=== PATIENT | female | born 1950 | race Caucasian/White ===

== ENCOUNTER 2017-01-08 13:03 | Emergency (ER) | payer MEDICAID ==
[2017-01-08 13:33] LABS: BASOPHILS 0.7 % (0.0-2.0); EOSINOPHILS 3.3 % (0-7); HEMATOCRIT 42.9 % (36.0-48.0); HEMOGLOBIN 14.2 g/dL (12-16); IMMATURE GRANULOCYTES 0.1 % (0-5); LYMPHOCYTES 34.9 % (15-50); MCH 31.6 pg (26.0-34.0); MCHC 33.1 g/dL (31.0-37.0); MCV 95.5 fL (80.0-100.0); MEAN PLATELET VOLUME 10.2 fL (7.4-10.4); PLATELET COUNT 187 10x3/uL (130-400); RBC 4.49 10x6/uL (4.00-5.40); RDW 13.2 % (11.5-14.5); WBC 9.2 10x3/uL (4.8-10.8)
[2017-01-08 13:58] LABS: ALBUMIN 3.6 g/dL (3.4-5.0); ALKALINE PHOSPHATASE 158 U/L (46-116); ALT (SGPT) 64 U/L (10-68); BILIRUBIN - TOTAL 0.41 mg/dL (0.2-1.3); CALC OSMOLALITY 282 mosm/kg (275-300); CALCIUM 8.7 mg/dL (8.5-10.1); CARBON DIOXIDE 26.8 mmol/L (21.0-32.0); CHLORIDE - SERUM 102 mmol/L (98-107); CREATININE - SERUM 0.9 mg/dL (0.6-1.3); POTASSIUM - SERUM 4.3 mmol/L (3.5-5.1); PROTEIN - SERUM 8.2 g/dL (6.4-8.2); SODIUM 138 mmol/L (136-145); UREA NITROGEN 11 mg/dL (7-18); eGFR NON AFRICAN AMERICAN 67 mL/min (90-120)
[2017-01-08 13:59] LABS: GLUCOSE 243 mg/dL (74-106)
[2017-01-08 14:08] LABS: CKMB 0.3 U/L (0.0-3.6); CREATINE KINASE 67 UL (21-215); TROPONIN-I < 0.017 ng/mL (0.000-0.060)
== END 2017-01-08 18:13 | disposition home or self-care (01) ==
LOC: D.ER 13:03
PROVIDERS: Family Medicine
DX: R05 Cough (principal); R06.02 Shortness of breath; E11.9 Type 2 diabetes mellitus without complications; Z79.4 Long term (current) use of insulin; R91.8 Other nonspecific abnormal finding of lung field; F17.200 Nicotine dependence, unspecified, uncomplicated

== ENCOUNTER 2017-02-26 11:10 | Emergency (ER) | payer MEDICAID | END 2017-02-26 12:30 | disposition home or self-care (01) | LOC: D.ER 11:10 | DX: S90.862A Insect bite (nonvenomous), left foot, initial encounter (principal); S90.861A Insect bite (nonvenomous), right foot, initial encounter; W57.XXXA Bitten or stung by nonvenomous insect and other nonvenomous arthropods, initial encounter; Y93.89 Activity, other specified; Y92.89 Other specified places as the place of occurrence of the external cause; E11.9 Type 2 diabetes mellitus without complications; Z79.4 Long term (current) use of insulin ==

== ENCOUNTER 2017-02-26 20:51 | Emergency (ER) | payer MEDICAID ==
[2017-02-26 22:26] LABS: BASOPHILS 0.6 % (0-2); EOSINOPHILS 2.7 % (0-7); HEMATOCRIT 39.5 % (36.0-48.0); IMMATURE GRANULOCYTES 0.3 % (0-5); LYMPHOCYTES 48.9 % (15-50); MCH 31.9 pg (26.0-34.0); MCHC 32.9 g/dL (31.0-37.0); MCV 97.1 fL (80.0-100.0); MEAN PLATELET VOLUME 10.5 fL (7.4-10.4); MONOCYTES 7.7 % (2-11); NEUTROPHILS 39.8 % (40-80); PLATELET COUNT 173 10x3/uL (130-400); RBC 4.07 10x6/uL (4.00-5.40); RDW 13.2 % (11.5-14.5); WBC 9.3 10x3/uL (4.8-10.8)
[2017-02-26 22:33] LABS: ALBUMIN 3.2 g/dL (3.4-5.0); ANION GAP 7.9 mmol/L (8-16); BILIRUBIN - TOTAL 0.26 mg/dL (0.2-1.3); CALCIUM 8.8 mg/dL (8.5-10.1); CARBON DIOXIDE 30.7 mmol/L (21.0-32.0); CREATININE - SERUM 1.1 mg/dL (0.6-1.3); POTASSIUM - SERUM 4.6 mmol/L (3.5-5.1); PROTEIN - SERUM 7.8 g/dL (6.4-8.2)
== END 2017-02-26 23:10 | disposition home or self-care (01) ==
LOC: D.ER 20:51
PROVIDERS: Emergency Medicine
DX: M54.30 Sciatica, unspecified side (principal); M62.838 Other muscle spasm; S39.012A Strain of muscle, fascia and tendon of lower back, initial encounter; X58.XXXA Exposure to other specified factors, initial encounter; Y93.89 Activity, other specified; Y92.89 Other specified places as the place of occurrence of the external cause; F17.200 Nicotine dependence, unspecified, uncomplicated; E11.9 Type 2 diabetes mellitus without complications; Z79.4 Long term (current) use of insulin

== ENCOUNTER 2017-05-14 11:04 | Emergency (ER) | payer MEDICAID ==
[2017-05-14 12:36] LABS: BASOPHILS 0.4 % (0-2); EOSINOPHILS 3.6 % (0-7); HEMATOCRIT 38.6 % (36.0-48.0); HEMOGLOBIN 12.8 g/dL (12-16); IMMATURE GRANULOCYTES 0.1 % (0-5); LYMPHOCYTES 47.1 % (15-50); MCH 32.2 pg (26.0-34.0); MCHC 33.2 g/dL (31.0-37.0); MEAN PLATELET VOLUME 9.6 fL (7.4-10.4); MONOCYTES 6.4 % (2-11); NEUTROPHILS 42.4 % (40-80); PLATELET COUNT 194 10x3/uL (130-400); RBC 3.98 10x6/uL (4.00-5.40); RDW 13.3 % (11.5-14.5); WBC 7.5 10x3/uL (4.8-10.8)
[2017-05-14 14:53] LABS: ALBUMIN 3.4 g/dL (3.4-5.0); ALKALINE PHOSPHATASE 133 U/L (46-116); ALT (SGPT) 46 U/L (10-68); AMYLASE - SERUM 68 U/L (25-115); BILIRUBIN - TOTAL 0.37 mg/dL (0.2-1.3); CALC OSMOLALITY 285 mosm/kg (275-300); CALCIUM 8.7 mg/dL (8.5-10.1); CARBON DIOXIDE 27.5 mmol/L (21.0-32.0); CHLORIDE - SERUM 104 mmol/L (98-107); CREATININE - SERUM 0.8 mg/dL (0.6-1.3); LIPASE 198 U/L (73-393); POTASSIUM - SERUM 4.8 mmol/L (3.5-5.1); PROTEIN - SERUM 8.2 g/dL (6.4-8.2); SODIUM 139 mmol/L (136-145); UREA NITROGEN 14 mg/dL (7-18); eGFR NON AFRICAN AMERICAN 76 mL/min (90-120)
[2017-05-14 14:54] LABS: GLUCOSE 232 mg/dL (74-106)
[2017-05-14 15:26] LABS: APPEARANCE HAZY (CLEAR); BILIRUBIN NEGATIVE (NEGATIVE); COLOR STRAW (YELLOW); GLUCOSE NEGATIVE (NEGATIVE); KETONE NEGATIVE (NEGATIVE); LEUKOCYTE ESTERASE 1+ (NEGATIVE); NITRITE NEGATIVE (NEGATIVE); PROTEIN NEGATIVE (NEGATIVE); UROBILINOGEN NORMAL (NORMAL)
[2017-05-14 15:29] LABS: BACTERIA MODERATE /hpf (NONE SEEN); RED CELLS - URINE OCC /hpf (0-5)
== END 2017-05-14 16:40 | disposition home or self-care (01) ==
LOC: D.ER 11:04
PROVIDERS: Emergency Medicine; Nurse Practitioner Family
DX: N39.0 Urinary tract infection, site not specified (principal); R10.9 Unspecified abdominal pain; F17.200 Nicotine dependence, unspecified, uncomplicated; E11.9 Type 2 diabetes mellitus without complications; Z79.4 Long term (current) use of insulin

== ENCOUNTER 2017-07-28 14:11 | Emergency (ER) | payer MEDICAID | END 2017-07-28 17:29 | disposition home or self-care (01) | LOC: D.ER 14:11 | DX: S43.401A Unspecified sprain of right shoulder joint, initial encounter (principal); X50.0XXA Overexertion from strenuous movement or load, initial encounter; Y93.89 Activity, other specified; Y92.029 Unspecified place in mobile home as the place of occurrence of the external cause; F17.200 Nicotine dependence, unspecified, uncomplicated ==

== ENCOUNTER 2018-01-07 11:52 | Emergency (ER) | payer MEDICAID ==
[2018-01-07 14:38] LABS: BASOPHILS 0.5 % (0-2); EOSINOPHILS 3.5 % (0-7); HEMATOCRIT 40.7 % (36.0-48.0); HEMOGLOBIN 13.4 g/dL (12-16); IMMATURE GRANULOCYTES 0.2 % (0-5); LYMPHOCYTES 32.2 % (15-50); MCH 32.4 pg (26.0-34.0); MCHC 32.9 g/dL (31.0-37.0); MCV 98.3 fL (80.0-100.0); MEAN PLATELET VOLUME 9.4 fL (7.4-10.4); MONOCYTES 9.9 % (2-11); NEUTROPHILS 53.7 % (40-80); PLATELET COUNT 205 10x3/uL (130-400); RBC 4.14 10x6/uL (4.00-5.40); RDW 13.1 % (11.5-14.5); WBC 9.4 10x3/uL (4.8-10.8)
[2018-01-07 14:43] LABS: APPEARANCE HAZY (CLEAR); BILIRUBIN NEGATIVE (NEGATIVE); COLOR ORANGE (YELLOW); GLUCOSE NEGATIVE (NEGATIVE); KETONE NEGATIVE (NEGATIVE); NITRITE NEGATIVE (NEGATIVE); PROTEIN 1+ mg/dL (NEGATIVE); SPECIFIC GRAVITY 1.025 (1.005-1.020); UROBILINOGEN NORMAL (NORMAL)
[2018-01-07 14:47] LABS: BACTERIA FEW /hpf (NONE SEEN); MUCUS <1+ /lpf (NONE SEEN)
[2018-01-07 14:58] LABS: ALBUMIN 3.7 g/dL (3.4-5.0); ALKALINE PHOSPHATASE 110 U/L (46-116); ALT (SGPT) 24 U/L (10-68); BILIRUBIN - TOTAL 0.39 mg/dL (0.2-1.3); CALCIUM 9.2 mg/dL (8.5-10.1); CARBON DIOXIDE 23.8 mmol/L (21.0-32.0); CHLORIDE - SERUM 105 mmol/L (98-107); CREATININE - SERUM 1.1 mg/dL (0.6-1.3); POTASSIUM - SERUM 3.8 mmol/L (3.5-5.1); PROTEIN - SERUM 8.3 g/dL (6.4-8.2); SODIUM 140 mmol/L (136-145); UREA NITROGEN 11 mg/dL (7-18); eGFR NON AFRICAN AMERICAN 53 mL/min (90-120)
[2018-01-07 15:01] LABS: AMYLASE - SERUM 74 U/L (25-115); LIPASE 118 U/L (73-393)
[2018-01-07 15:02] LABS: CALC OSMOLALITY 278 mosm/kg (275-300); GLUCOSE 118 mg/dL (74-106); TROPONIN-I < 0.017 ng/mL (0.000-0.060)
== END 2018-01-07 16:06 | disposition home or self-care (01) ==
LOC: D.ER 11:52
PROVIDERS: Emergency Medicine; Nurse Practitioner Family
DX: N39.0 Urinary tract infection, site not specified (principal); R11.2 Nausea with vomiting, unspecified; E11.9 Type 2 diabetes mellitus without complications; Z79.4 Long term (current) use of insulin

== ENCOUNTER 2018-07-17 13:46 | Emergency (ER) | payer MEDICARE ==
[~2018-07-17] VITALS: Ht 157.5 cm; Wt 95.5 kg
[2018-07-17 13:49] VITALS: Ht 157.5 cm; Wt 95.5 kg
[2018-07-17] MEDS ORDERED: LANTUS SQ (13:55)
[2018-07-17] MEDS ORDERED: GLUCOPHAGE500 MG PO (13:55)
[2018-07-17] MEDS ORDERED: ZOVIRAX800 MG PO (16:56)
[2018-07-17] MEDS ORDERED: NEURONTIN 300300 MG PO (16:56)
[2018-07-17 17:19] VITALS: BP 179/85
== END 2018-07-17 17:19 | disposition home or self-care (01) ==
LOC: D.ER 13:46
DX: B02.9 Zoster without complications (principal); E11.9 Type 2 diabetes mellitus without complications; F17.200 Nicotine dependence, unspecified, uncomplicated

== ENCOUNTER 2018-08-29 10:11 | Emergency (ER) | payer MEDICARE ==
[~2018-08-29] VITALS: Ht 157.5 cm; Wt 90.0 kg
[~2018-08-29 10:11] MED LIST: GLUCOPHAGE500 MG PO; LANTUS SQ; NEURONTIN 300300 MG PO; ZOVIRAX800 MG PO
[2018-08-29 10:25] VITALS: Ht 157.5 cm; Wt 90.0 kg
[2018-08-29] MEDS ORDERED: ULTRAM50 MG PO (11:04)
[2018-08-29] MEDS ORDERED: MEDROL DOSE PACK4 MG PO (11:04)
[2018-08-29] MEDS ORDERED: ZOVIRAX800 MG PO (11:04)
[2018-08-29 12:44] VITALS: BP 126/59
== END 2018-08-29 12:45 | disposition home or self-care (01) ==
LOC: D.ER 10:11
DX: B02.9 Zoster without complications (principal); M25.512 Pain in left shoulder; E11.9 Type 2 diabetes mellitus without complications; F17.200 Nicotine dependence, unspecified, uncomplicated

== ENCOUNTER 2018-09-16 16:27 | Emergency (ER) | payer MEDICARE ==
[~2018-09-16] VITALS: Ht 157.5 cm; Wt 87.1 kg
[~2018-09-16 16:27] MED LIST changes: +MEDROL DOSE PACK4 MG PO; +ULTRAM50 MG PO
[2018-09-16 16:31] VITALS: Ht 157.5 cm; Wt 87.1 kg
[2018-09-16] MEDS ORDERED: ACETAMINOPHEN500 M1 PO (17:15)
[2018-09-16] MEDS ORDERED: MEDROL DOSE PACK4 MG PO (17:15)
[2018-09-16] MEDS ORDERED: CYCLOBENZAPRINE10 MG PO (17:15)
[2018-09-16 17:53] VITALS: BP 135/67
== END 2018-09-16 17:53 | disposition home or self-care (01) ==
LOC: D.ER 16:27
DX: M54.42 Lumbago with sciatica, left side (principal); E11.9 Type 2 diabetes mellitus without complications

== ENCOUNTER 2019-05-16 20:01 | Inpatient (IN) | payer MEDICARE ==
[~2019-05-16] VITALS: Ht 157.5 cm; Wt 89.4 kg
[~2019-05-16 20:01] MED LIST changes: +ACETAMINOPHEN500 M1 PO; +CYCLOBENZAPRINE10 MG PO
[2019-05-16] MEDS ORDERED: CENTRUM SILVER1 EAC3 PO (20:11)
[2019-05-16 20:37] LABS: BASOPHILS 0.4 % (0-2); EOSINOPHILS 1.8 % (0-7); HEMATOCRIT 39.9 % (36.0-48.0); HEMOGLOBIN 13.7 g/dL (12-16); IMMATURE GRANULOCYTES 0.1 % (0-5); LYMPHOCYTES 39.8 % (15-50); MCH 33.2 pg (26.0-34.0); MCHC 34.3 g/dL (31.0-37.0); MCV 96.6 fL (80.0-100.0); MEAN PLATELET VOLUME 9.2 fL (7.4-10.4); MONOCYTES 5.4 % (2-11); NEUTROPHILS 52.5 % (40-80); PLATELET COUNT 230 10x3/uL (130-400); RBC 4.13 10x6/uL (4.00-5.40); WBC 13.7 10x3/uL (4.8-10.8)
[2019-05-16 20:54] LABS: ALBUMIN 3.9 g/dL (3.4-5.0); ALKALINE PHOSPHATASE 118 U/L (46-116); ALT (SGPT) 21 U/L (10-68); BILIRUBIN - TOTAL 0.27 mg/dL (0.2-1.3); CALC OSMOLALITY 280 mosm/kg (275-300); CALCIUM 9.3 mg/dL (8.5-10.1); CARBON DIOXIDE 25.7 mmol/L (21.0-32.0); CHLORIDE - SERUM 105 mmol/L (98-107); GLUCOSE 134 mg/dL (74-106); POTASSIUM - SERUM 4.4 mmol/L (3.5-5.1); PROTEIN - SERUM 8.5 g/dL (6.4-8.2); SODIUM 139 mmol/L (136-145); UREA NITROGEN 16 mg/dL (7-18); eGFR NON AFRICAN AMERICAN 59 mL/min (90-120)
[2019-05-16 20:58] LABS: AMYLASE - SERUM 101 U/L (25-115); LIPASE 616 U/L (73-393)
[2019-05-16 21:06] LABS: TROPONIN-I < 0.017 ng/mL (0.000-0.060)
--- NOTE | 2019-05-16 22:03 | NUR ---
BEDSIDE COMMODE AT BEDSIDE. REPORTS PAIN IS EASING UP
--- NOTE | 2019-05-16 23:22 | NUR ---
CT TRANSFERRED PT VIA WC FOR CT ABD PELVIS
[2019-05-17 02:44] VITALS: BP 140/50; BMI 36.1
--- NOTE | 2019-05-17 03:15 | NUR ---
RECIEVED REPORT FROM CRAIG SNIDER, PT ARRIVED IN BED. AAOX3, NO S/S OF DISTRESS. VSS. PT C/O PAIN UPON ARRIVAL IN UNIT. WILL GIVE PRN PAIN MED WHEN DUE. INITIAL ASSESSMENT COMPLETED. PT'S A GOOD HISTORIAN. WILL CPOC.
--- NOTE | 2019-05-17 03:37 | NUR ---
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 1MG NEEDED LOCKOUT 10MIN. PT REFUSED INITIAL DOSE BOLUS AT THIS TIME. PT VOICED THANKS. WILL CPOC.
[2019-05-17 04:00] VITALS: BP 140/50
--- NOTE | 2019-05-17 04:20 | NUR ---
ASSESSED PT PAIN LEVEL. PT STATES SHE IS FEELING GREAT. STATES PAIN LEVEL IS 3/10 AT THIS TIME. WILL CTM.
--- NOTE | 2019-05-17 06:38 | NUR ---
FSBS 64. 2 CANS OF OJ GIVEN WITH A PACK OF SUGAR. WILL NOTIFY INCOMING NURSE. ASSIST PT TO BATHROOM. DIRECTOR CARD STILL INFUSING. WILL CPOC.
--- NOTE | 2019-05-17 07:10 | NUR ---
REPORT RECEIVED FROM ELEMENTARY SCHOOL TEACHER'S AIDE AND PATIENT CARE ASSUMED. PATIENT IS LAYING IN BED ON BACK AWAKE, ALERT AND ORIENTED X 4. PATIENT DENIES ANY NEEDS OR PAIN. WILL CONTINUE WITH PLAN OF CARE. SR UP X 2 BED IN LOW POSITION AND CALL LIGHT IN REACH.
[2019-05-17 08:52] VITALS: BP 111/43
[2019-05-17 12:55] LABS: APPEARANCE CLEAR (CLEAR); BILIRUBIN NEGATIVE (NEGATIVE); COLOR YELLOW (YELLOW); GLUCOSE NEGATIVE (NEGATIVE); KETONE NEGATIVE (NEGATIVE); NITRITE POSITIVE (NEGATIVE); PROTEIN TRACE mg/dL (NEGATIVE); SPECIFIC GRAVITY 1.015 (1.005-1.020); UROBILINOGEN NORMAL (NORMAL)
[2019-05-17 12:56] LABS: WHITE CELLS - URINE 0-5 /hpf (0-5)
[2019-05-17 12:57] LABS: BACTERIA MODERATE /hpf (NONE SEEN); EPITHELIAL CELLS 0-5 /hpf (0-5); MUCUS <1+ /lpf (NONE SEEN)
[2019-05-17 13:33] VITALS: Ht 157.5 cm; Wt 89.4 kg
[2019-05-17 13:56] VITALS: BP 148/69
--- NOTE | 2019-05-17 19:10 | NUR ---
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
[2019-05-17 20:00] VITALS: BP 151/58
--- NOTE | 2019-05-18 01:23 | NUR ---
I have reviewed this patient and I concur with the Shift Assessment completed by the Licensed Practical Nurse today this shift.
[2019-05-18 04:00] VITALS: BP 129/64
[2019-05-18 05:48] LABS: ALBUMIN 3.2 g/dL (3.4-5.0); ALKALINE PHOSPHATASE 86 U/L (46-116); ALT (SGPT) 20 U/L (10-68); BILIRUBIN - TOTAL 0.41 mg/dL (0.2-1.3); CALCIUM 8.1 mg/dL (8.5-10.1); CARBON DIOXIDE 26.6 mmol/L (21.0-32.0); CHLORIDE - SERUM 109 mmol/L (98-107); GLUCOSE 136 mg/dL (74-106); LIPASE 82 U/L (73-393); POTASSIUM - SERUM 4.4 mmol/L (3.5-5.1); PROTEIN - SERUM 6.9 g/dL (6.4-8.2); SODIUM 142 mmol/L (136-145)
[2019-05-18 05:54] LABS: AMYLASE - SERUM 64 U/L (25-115); CALC OSMOLALITY 281 mosm/kg (275-300); CREATININE - SERUM 0.7 mg/dL (0.6-1.3); UREA NITROGEN 5 mg/dL (7-18); eGFR NON AFRICAN AMERICAN 89 mL/min (90-120)
[2019-05-18 08:40] VITALS: BP 166/54
--- NOTE | 2019-05-18 09:10 | NUR ---
PATIENT PAIN IS BEING TREATED ORDERED. DENIES ANY OTHER NEEDS AT THIS TIME.
--- NOTE | 2019-05-18 12:12 | NUR ---
NEW IV START 22 G IN RIGHT AC , ONE STICK, PATIENT TOLERATED. IV IN LEFT AC REMOVED BECAUSE IT WAS INFILTRATED. CATHETER INTACT AND PATIENT TOLERATED.
[2019-05-18 12:27] VITALS: BP 153/66
--- NOTE | 2019-05-18 14:36 | NUR ---
PATIENT HAS BEEN DISCHARGED. ALL DISCHARGE PAPERWORK HAS BEEN DONE AND PAPERS SIGNED. ALL PATIENT BELONGINGS HAVE BEEN REMOVED FROM THE ROOM. IV FROM RIGHT AC HAS BEEN REMOVED CATHETER INTACT. PATIENT IS LEAVING THE FLOOR BY WHEELCHAIR AND GOING HOME WITH FAMILY.
--- NOTE | 2019-05-18 16:30 | MORECARE ---
CASE MANAGEMENT DISCHARGE SUMMARY PATIENT: GUS BENAVIDEZ UNIT: [id number] ADM DATE: 05/17/19 AGE: 68 : 52 SEX: F ROOM/BED: D.2104 AUTHOR: JORDAN CARREON PHYSICIAN: REFERRING PHYSICIAN: HERMINIO DUARTE MD DATE OF SERVICE: 05/18/19 Discharge Plan Patient Name: GUS [facility]NA[facility]IDE[facility] [facility] 1950 Planned Disposition: Home Anticipated Discharge Date: 05/18/19 Discharge Date: 05/18/2019 Expected LOS: 1 Initial Reviewer: [email or web address] Initial Review Date: 05/18/2019 Generated: 05/18/19 5:30 pm DCPIA - Discharge Planning Initial Assessment Updated by [email or web address]: Jovani Nobles on 05/18/19 4:28 pm * Is the patient Alert and Oriented? Yes * How many steps to enter\exit or inside your home? * PCP DR. SAMAYOA [place] * Pharmacy [facility] * Preadmission Environment Home with Family * ADLs Independent * Equipment None * Other Equipment NO MEDICAL EQUIPMENT PROVIDER PREFERENCE * List name and contact numbers for known caregivers / representatives who currently or will assist patient after discharge: CYNDY POMPA R, * Verbal permission to speak to the caregivers and representatives has been obtained from the patient. N/A * Community resources currently utilized None * Please name any agencies selected above. NONE * Additional services required to return to the preadmission environment? No * Can the patient safely return to the preadmission environment? Yes * Has this patient been hospitalized within the prior 30 days at any hospital? No Patient Name: GUS BENAVIDEZ Page [id number] at 1630 All edits/amendments must be made on the electronic document DICTATION DATE: 05/18/19 1630 RECHECKER: CELIA 05/18/19 1630 RPT#: [id number] DC DATE:05/18/19 STATUS: DIS IN [facility] [address] [place] [address] END OF REPORT
--- NOTE | 2019-05-18 16:38 | MORECARE ---
CASE MANAGEMENT DISCHARGE SUMMARY PATIENT: GUS BENAVIDEZ UNIT: [id number] ADM DATE: 05/17/19 AGE: 68 : 52 SEX: F ROOM/BED: D.7501 AUTHOR: LAURI,DOC PHYSICIAN: REFERRING PHYSICIAN: HERMINIO DUARTE MD DATE OF SERVICE: 05/18/19 Discharge Plan Patient Name: GUS BENAVIDEZ Facility: [facility]:[place] : 1950 Planned Disposition: Home Anticipated Discharge Date: 05/18/19 Discharge Date: 05/18/2019 Expected LOS: 1 Initial Reviewer: [email or web address] Initial Review Date: 05/18/2019 Generated: 05/18/19 5:37 pm Comments DCP- Discharge Planning Updated by [email or web address]: Jovani Nobles on 05/18/19 3:[address] Patient Name: GUS BENAVIDEZ Admission Status: ER Accout number: [id number] Admission Date: 05-17-2019 : 1950 Admission Diagnosis: Attending: IRASEMA DUARTE Current LOS: 1 Anticipated DC Date: 05-18-2019 Planned Disposition: Home Primary Insurance: MEDICARE A & B Discharge Planning Comments: CM MET WITH PT IN ROOM TO DISCUSS DISCHARGE PLANNING AND NEEDS. PT REPORTS LIVING AT HOME INDEPENDENTLY, ALSO IN THE HOME IS PT'S ADULT DAUGHTER. PT HAS NO MEDICAL EQUIPMENT AND NO OUTSIDE SERVICES ASSISTING IN THE HOME. CM DISCUSSED AVAILABILITY OF HOME HEALTH, REHAB SERVICES AND MEDICAL EQUIPMENT. PT DENIES DISCHARGE NEEDS, REPORTS HER DAUGHTER WILL PICK HER UP FOR DISCHARGE HOME. Coil Winder Hand: Jovani Nobles DCPIA - Discharge Planning Initial Assessment Updated by [email or web address]: Jovani Nobles on 05/18/19 4:28 pm * Is the patient Alert and Oriented? Yes * How many steps to enter\exit or inside your home? * PCP DR. SAMAYOA [place] * Pharmacy [facility] * Preadmission Environment Home with Family * ADLs Independent * Equipment None * Other Equipment NO MEDICAL EQUIPMENT PROVIDER PREFERENCE * List name and contact numbers for known caregivers / representatives who currently or will assist patient after discharge: CYNDY POMPA, MAYNOR, * Verbal permission to speak to the caregivers and representatives has been obtained from the patient. N/A * Community resources currently utilized None * Please name any agencies selected above. NONE * Additional services required to return to the preadmission environment? No * Can the patient safely return to the preadmission environment? Yes * Has this patient been hospitalized within the prior 30 days at any hospital? No Last DP export: 05/18/19 3:30 p Patient Name: GUS BENAVIDEZ Page [id number] at 1638 All edits/amendments must be made on the electronic document DICTATION DATE: 05/18/191636 MANAGER OF FINANCIAL PLANNING: CELIA 05/18/19 1637 RPT#: [id number] DC DATE:05/18/19 STATUS: DIS IN [facility] [address] [place] [address] END OF REPORT
== END 2019-05-18 15:07 | disposition home or self-care (01) | DRG 439 ==
LOC: D.ER 20:01 → D.M2 05-17 01:12
PROVIDERS: Emergency Medicine; Family Medicine; ADMIT Emergency Medicine; ATTEND Emergency Medicine
DX: K85.90 Acute pancreatitis without necrosis or infection, unspecified (principal); N39.0 Urinary tract infection, site not specified; E11.40 Type 2 diabetes mellitus with diabetic neuropathy, unspecified; M19.90 Unspecified osteoarthritis, unspecified site; F17.210 Nicotine dependence, cigarettes, uncomplicated

== ENCOUNTER 2019-09-11 11:11 | Emergency (ER) | payer MEDICARE ==
[~2019-09-11 11:11] MED LIST changes: +CENTRUM SILVER1 EAC3 PO
[2019-09-11 11:17] VITALS: Ht 157.5 cm
[2019-09-11] MEDS ORDERED: DICLOFENAC SODI50 MG PO (11:50)
[2019-09-11 11:59] VITALS: BP 138/69
== END 2019-09-11 12:00 | disposition home or self-care (01) ==
LOC: D.ER 11:11
DX: M54.31 Sciatica, right side (principal); E11.9 Type 2 diabetes mellitus without complications; Z79.84 Long term (current) use of oral hypoglycemic drugs

== ENCOUNTER 2019-10-24 08:41 | Emergency (ER) | payer MEDICARE ==
[~2019-10-24] VITALS: Ht 157.5 cm; Wt 93.2 kg
[~2019-10-24 08:41] MED LIST changes: +DICLOFENAC SODI50 MG PO
[2019-10-24 08:50] VITALS: BP 123/66; Ht 157.5 cm; Wt 93.2 kg
[2019-10-24] MEDS ORDERED: METHOCARBAMOL750 MG NG (11:22)
[2019-10-24] MEDS ORDERED: VOLTAREN75 MG PO (11:22)
== END 2019-10-24 11:42 | disposition home or self-care (01) ==
LOC: D.ER 08:41
DX: S30.0XXA Contusion of lower back and pelvis, initial encounter (principal); W19.XXXA Unspecified fall, initial encounter; Y93.9 Activity, unspecified; Y92.9 Unspecified place or not applicable; M62.838 Other muscle spasm; E11.40 Type 2 diabetes mellitus with diabetic neuropathy, unspecified; Z79.84 Long term (current) use of oral hypoglycemic drugs